=== PATIENT | female | born 1940 | race Caucasian/White ===

== ENCOUNTER 2016-07-08 22:18 | Emergency (ER) | payer OTHER ==
[2016-07-09 01:23] LABS: HEMOGLOBIN 15.4 gm/dl (12.3-15.3); RED BLOOD COUNT 5.62 M/UL (4.00-5.10); WHITE BLOOD COUNT 12.3 K/UL (4.5-11.0)
[2016-07-09 01:38] LABS: BUN/CREATININE RATIO 30 (0-10)
== END 2016-07-09 03:25 | disposition home or self-care (01) ==
LOC: ER1 22:18
PROVIDERS: Family Medicine
DX: I10 Essential (primary) hypertension (principal); Z88.2 Allergy status to sulfonamides
CPT/HCPCS: 36415; 80053; 85025; 93005; 99283